=== PATIENT | female | born 1990 | race American Indian/Alaskan Native ===

== ENCOUNTER 2021-10-16 15:49 | Emergency (ER) | payer MEDICAID | END 2021-10-16 17:35 | disposition left against medical advice (07) | LOC: JP.ED 15:49 | DX: Z53.21 Procedure and treatment not carried out due to patient leaving prior to being seen by health care provider (principal) ==

== ENCOUNTER 2023-07-18 09:46 | Emergency (ER) | payer BC, MEDICAID ==
[2023-07-18] MEDS ORDERED: Lidocaine 1% with EPINEPHrine 1:100,000 50 ML MDV SUBCUT STA (13:57)
== END 2023-07-18 15:10 | disposition home or self-care (01) ==
LOC: JP.ED 09:46
DX: L02.416 Cutaneous abscess of left lower limb (principal); I10 Essential (primary) hypertension; F17.210 Nicotine dependence, cigarettes, uncomplicated; Z79.899 Other long term (current) drug therapy
CPT/HCPCS: 10060; 87070; 87077; 87186; 87205; 99283